=== PATIENT | male | born 1945 | race Caucasian/White ===

== ENCOUNTER 2016-11-28 09:57 | Day surgery (SDC) | payer OTHER ==
[2016-11-24 10:51] VITALS: BMI 25.8
[2016-11-28] MEDS ORDERED: PROPOFOL 20 ML ONE ×2 (11:00)
[2016-11-28 12:21] VITALS: BP 130/76; PULSE 60; TEMP 98.6
--- NOTE | 2016-11-29 10:45 | PATH ---
Surgical Pathology Report Patient Name: KAYLIE CALDERA [facility]. Rec. #: [id number] /Age/Gender: 1945 (Age: 71) / M Account: [id number] Location: [facility] Taken: 11/28/2016 Received: 11/28/2016 Reported: 11/29/2016 Physicians: Rajinder Underwood M.D. Specimen(s) Received BX PROXIMAL RIGHT COLON Clinical History Rule out colon cancer Polyp Final Diagnosis COLON, PROXIMAL RIGHT, BIOPSY: TUBULAR ADENOMA. Electronically Signed Calderon Byrd M.D. Gross Description Received in formalin, labeled "proximal right colon" is a loja, irregular portion of soft tissue measuring 0.3 cm. in greatest dimension. The specimen is submitted in toto in one cassette. 11/28/201611/28/2016
== END 2016-11-28 12:30 | disposition home or self-care (01) ==
LOC: FASU-ENDO 09:57
PROVIDERS: ATTEND Internal Medicine Gastroenterology
PROC: 0DBK8ZX Excision of Ascending Colon, Via Natural or Artificial Opening Endoscopic, Diagnostic (ICD-10-PCS; principal; 2016-11-28 11:31)
DX: D12.2 Benign neoplasm of ascending colon (principal); K57.30 Diverticulosis of large intestine without perforation or abscess without bleeding; K59.00 Constipation, unspecified; R19.4 Change in bowel habit
CPT/HCPCS: 88305-TC